=== PATIENT | female | born 1995 | race Caucasian/White ===

== ENCOUNTER 2019-09-18 13:53 | Outpatient (CLI) | payer OTHER ==
[2019-09-18] MEDS ORDERED: MEDR150V INJ (14:29)
[2019-09-18 15:27] LABS: BASOPHILS # (AUTO) 0.04 x10^3/uL (0-0.1); BASOPHILS % (AUTO) 1 % (0-1); EOSINOPHILS % (AUTO) 2 % (1-7); LYMPHOCYTES # (AUTO) 2.94 x10^3/uL (1-3.4); LYMPHOCYTES % (AUTO) 41 % (22-44); MD NO; MEAN CORPUSCULAR HEMOGLOBIN 29.4 pg (27.0-34.8); MEAN CORPUSCULAR HGB CONC 32.7 g/dL (32.4-35.8); MEAN CORPUSCULAR VOLUME 89.9 fL (80-100); MEAN PLATELET VOLUME 9.4 fL (7.4-10.4); MONOCYTES # (AUTO) 0.57 x10^3/uL (0.2-0.8); MONOCYTES % (AUTO) 8 % (2-9); NEUTROPHILS # (AUTO) 3.48 x10^3/uL (1.8-6.8); NEUTROPHILS % (AUTO) 49 % (42-75); PLATELET COUNT 272 x10^3/uL (130-400); RED BLOOD COUNT 4.67 x10^6/uL (3.82-5.3); RED CELL DISTRIBUTION WIDTH 13.6 % (9.6-15.2)
[2019-09-18 15:36] LABS: ALANINE AMINOTRANSFERASE 24 U/L (12-78); ALBUMIN 4.1 g/dL (3.4-5.0); ANION GAP 5 mmol/L (5-15); CALCIUM 8.9 mg/dL (8.5-10.1); CHLORIDE 110 mmol/L (98-107); CREATININE 0.85 mg/dL (0.55-1.02)
[2019-09-18 15:41] LABS: ALKALINE PHOSPHATASE 38 U/L (45-117); BILIRUBIN,TOTAL 2.9 mg/dL (0.2-1.0); PROTHROMBIN TIME 10.6 Seconds (9.6-11.5); TOTAL PROTEIN 7.5 g/dL (6.4-8.2)
== END 2019-09-18 23:59 | disposition home or self-care (01) ==
LOC: STAR 13:53
PROVIDERS: ATTEND Neurological Surgery
DX: Z01.818 Encounter for other preprocedural examination (principal); M41.84 Other forms of scoliosis, thoracic region
CPT/HCPCS: 36415; 71046; 80053; 84703; 85025; 85610; 85730; 93005; U0001-CS

== ENCOUNTER 2019-09-25 06:37 | Inpatient (IN) | payer OTHER ==
[~2019-09-25] VITALS: Ht 165.1 cm; Wt 62.5 kg
[~2019-09-25 06:37] MED LIST: BACITRACIN 50,000 UNIT ONE; BUPIVACAINE/PF-EPI 0.5% 1:200K ONE; MEDR150V INJ; THROMBIN 20,000 UNIT VIAL TP ONE
[2019-09-25] MEDS ORDERED: LACTATED RINGERS 1,000 ML IV SCH (07:32)
[2019-09-25 07:37] VITALS: BP 124/80
[2019-09-25] MEDS ORDERED: ACETAMINOPHEN 500 MG TABLET PO ONE (08:00)
[2019-09-25] MEDS ORDERED: CHLORHEXIDINE 15 ML UDC MM ONE (08:00)
[2019-09-25] MEDS ORDERED: LIDOCAINE-MPF 1%, 2ML INFIL ONE (08:00)
[2019-09-25] MEDS ORDERED: LEVETIRACETAM 1,000 MG in SODIUM CHLORIDE 0.9% 100 ML IV ONE (08:00)
[2019-09-25 08:19] LABS: HCG UR SG 1.032 (1.003-1.030)
[2019-09-25] MEDS ORDERED: GADOTERATE 7.5 MMOL/15 ML SYR ONE (08:30)
[2019-09-25] MEDS ORDERED: FENTANYL PF 250 MCG/5ML ONE (08:51)
[2019-09-25] MEDS ORDERED: PROPOFOL 50 ML ONE (08:52)
[2019-09-25] MEDS ORDERED: PROPOFOL 10 MG/ML, 20ML ONE (08:52)
[2019-09-25] MEDS ORDERED: GLYCOPYRROLATE 0.2MG/1ML, 5ML ONE (08:52)
[2019-09-25] MEDS ORDERED: ONDANSETRON 2MG/ML, 2ML ONE ×2 (08:52→14:07)
[2019-09-25] MEDS ORDERED: NEOSTIGMINE 1 MG/ML, 10ML ONE (08:52)
[2019-09-25] MEDS ORDERED: DEXAMETHASONE 4 MG/ML, 1ML ONE (08:52)
[2019-09-25] MEDS ORDERED: CEFAZOLIN 1,000 MG ONE (08:52)
[2019-09-25] MEDS ORDERED: ROCURONIUM 10MG/ML,5ML ONE (08:52)
[2019-09-25] MEDS ORDERED: FUROSEMIDE 20 MG/2 ML ONE (09:18)
[2019-09-25] MEDS ORDERED: DEXAMETHASONE 4 MG/ML, 5ML ONE (09:18)
[2019-09-25] MEDS ORDERED: MANNITOL PMX 20% 500 ML ONE (09:18)
[2019-09-25] MEDS ORDERED: FENTANYL PF 100 MCG/2ML IV PRN (09:30)
[2019-09-25] MEDS ORDERED: HYDROmorphone 1 MG/ML, 1ML INJ IVPush PRN (09:30)
[2019-09-25] MEDS ORDERED: hydrALAzine 20 MG/ML, 1ML IV PRN ×2 (09:30→14:30)
[2019-09-25] MEDS ORDERED: HALOPERIDOL 5 MG/ML IV PRN (09:30)
[2019-09-25] MEDS ORDERED: MEPERIDINE/PF 25MG/0.5ML IVPush PRN (09:30)
[2019-09-25] MEDS ORDERED: morphine SULFATE 10 MG/ML, 1ML IVPush PRN (09:30)
[2019-09-25] MEDS ORDERED: PROMETHAZINE 25 MG/ML, 1ML IVPush PRN (09:30)
[2019-09-25] MEDS ORDERED: LABETALOL 5MG/ML, 20ML IV PRN (09:30)
[2019-09-25] MEDS ORDERED: OXYcodone 5 MG/5 ML ORAL.SOL UDC PO PRN (09:30)
[2019-09-25] MEDS ORDERED: FENTANYL PF 100 MCG/2ML ONE ×2 (10:34)
[2019-09-25] MEDS ORDERED: BACITRACIN OINT 500U/GM, 15 GM ONE (12:13)
[2019-09-25] MEDS ORDERED: PROMETHAZINE 25 MG/ML, 1ML ONE (12:57)
[2019-09-25] MEDS ORDERED: LABETALOL 5MG/ML, 20ML IV SCH (14:30)
[2019-09-25] MEDS: ONDANSETRON 2MG/ML, 2ML IV PRN ×2 (14:30→21:04)
[2019-09-25] MEDS ORDERED: DIPHENHYDRAMINE 50 MG/ML, 1ML IM PRN (14:30)
[2019-09-25] MEDS ORDERED: MAGNESIUM HYDROXIDE 8%, 30ML UDC PO PRN (14:30)
[2019-09-25] MEDS: LABETALOL 5MG/ML, 20ML IV SCH ×2 (14:30→22:39)
[2019-09-25] MEDS ORDERED: ACETAMINOPHEN 650 MG SUPP PR PRN (14:30)
[2019-09-25] MEDS ORDERED: ACETAMINOPHEN 325 MG TABLET PO PRN (14:30)
[2019-09-25] MEDS ORDERED: BISACODYL 10 MG SUPP PR PRN (14:30)
[2019-09-25] MEDS ORDERED: LABETALOL 250 MG in DEXTROSE 5% 200 ML IV PRN (14:30)
[2019-09-25] MEDS ORDERED: OXYcodone/APAP 5/325MG TABLET PO PRN (14:30)
[2019-09-25] MEDS ORDERED: DIPHENHYDRAMINE 50 MG/ML, 1ML IV PRN (14:30)
[2019-09-25] MEDS ORDERED: CALCIUM CARBONATE 500 MG TAB.CHEW PO PRN (15:30)
[2019-09-25] MEDS ORDERED: METOCLOPRAMIDE 5 MG/ML, 2ML IVPush PRN (15:30)
[2019-09-25] MEDS: NS + 20MEQ KCL 1,000 ML IV SCH (15:57)
[2019-09-25] MEDS: HYDROmorphone 2 MG/ML, 1ML IV PRN ×3 (15:58→21:26)
[2019-09-25] MEDS: CEFAZOLIN PMX 1GM/50ML 50 ML IVPB SCH (18:17)
[2019-09-25] MEDS: MANNITOL 0.25 GM/ML, 50ML IVPush SCH (18:20)
[2019-09-25] MEDS: LEVETIRACETAM 500 MG in SODIUM CHLORIDE 0.9% 100 ML IV SCH (22:39)
[2019-09-26] MEDS: HYDROmorphone 2 MG/ML, 1ML IV PRN ×5 (00:33→14:51)
[2019-09-26] MEDS: MANNITOL 0.25 GM/ML, 50ML IVPush SCH ×2 (02:30→11:04)
[2019-09-26] MEDS: CEFAZOLIN PMX 1GM/50ML 50 ML IVPB SCH (02:31)
[2019-09-26 04:00] VITALS: BP 126/74
[2019-09-26] MEDS: ONDANSETRON 2MG/ML, 2ML IV PRN ×2 (04:24→11:19)
[2019-09-26] MEDS: NS + 20MEQ KCL 1,000 ML IV SCH ×2 (04:32→17:11)
[2019-09-26 04:54] LABS: BASOPHILS # (AUTO) 0.05 x10^3/uL (0-0.1); BASOPHILS % (AUTO) 0 % (0-1); EOSINOPHILS % (AUTO) 0 % (1-7); LYMPHOCYTES # (AUTO) 1.65 x10^3/uL (1-3.4); LYMPHOCYTES % (AUTO) 12 % (22-44); MD NO; MEAN CORPUSCULAR HEMOGLOBIN 30.1 pg (27.0-34.8); MEAN CORPUSCULAR HGB CONC 33.8 g/dL (32.4-35.8); MEAN CORPUSCULAR VOLUME 89.3 fL (80-100); MEAN PLATELET VOLUME 9.7 fL (7.4-10.4); MONOCYTES % (AUTO) 9 % (2-9); NEUTROPHILS # (AUTO) 10.77 x10^3/uL (1.8-6.8); NEUTROPHILS % (AUTO) 78 % (42-75); PLATELET COUNT 232 x10^3/uL (130-400); RED BLOOD COUNT 4.04 x10^6/uL (3.82-5.3); RED CELL DISTRIBUTION WIDTH 13.1 % (9.6-15.2)
[2019-09-26 05:05] LABS: ANION GAP 9 mmol/L (5-15); CALCIUM 8.3 mg/dL (8.5-10.1); CHLORIDE 109 mmol/L (98-107); CREATININE 0.75 mg/dL (0.55-1.02)
[2019-09-26] MEDS: LABETALOL 5MG/ML, 20ML IV SCH ×2 (07:19→14:46)
[2019-09-26] MEDS: SENNA/DOCUSATE TABLET PO SCH (09:07)
[2019-09-26] MEDS: LEVETIRACETAM 500 MG in SODIUM CHLORIDE 0.9% 100 ML IV SCH ×2 (10:08→22:09)
[2019-09-26] MEDS: HYDROcodone/APAP 5/325 TABLET PO PRN ×2 (13:36→19:41)
[2019-09-26] MEDS ORDERED: LABETALOL 100 MG TABLET PO PRN (17:00)
[2019-09-26] MEDS ORDERED: SCOPOLAMINE 1MG PATCH TD ONE (17:00)
[2019-09-26] MEDS: DEXAMETHASONE 4 MG/ML, 1ML IVPush SCH ×2 (17:10→22:51)
[2019-09-26 19:14] VITALS: BP 145/80
[2019-09-26] MEDS ORDERED: LABETALOL 5MG/ML, 20ML IV PRN (22:00)
[2019-09-27 00:43] VITALS: BP 126/74
[2019-09-27] MEDS: HYDROcodone/APAP 5/325 TABLET PO PRN ×2 (01:02→09:24)
[2019-09-27] MEDS: NS + 20MEQ KCL 1,000 ML IV SCH (04:51)
[2019-09-27] MEDS: DEXAMETHASONE 4 MG/ML, 1ML IVPush SCH ×2 (04:51→11:41)
[2019-09-27 05:24] LABS: BASOPHILS # (AUTO) 0.02 x10^3/uL (0-0.1); BASOPHILS % (AUTO) 0 % (0-1); EOSINOPHILS # (AUTO) 0.07 x10^3/uL (0-0.4); EOSINOPHILS % (AUTO) 1 % (1-7); LYMPHOCYTES # (AUTO) 1.08 x10^3/uL (1-3.4); LYMPHOCYTES % (AUTO) 13 % (22-44); MD NO; MEAN CORPUSCULAR HEMOGLOBIN 29.5 pg (27.0-34.8); MEAN CORPUSCULAR HGB CONC 32.8 g/dL (32.4-35.8); MEAN CORPUSCULAR VOLUME 89.9 fL (80-100); MEAN PLATELET VOLUME 10.1 fL (7.4-10.4); MONOCYTES # (AUTO) 0.17 x10^3/uL (0.2-0.8); MONOCYTES % (AUTO) 2 % (2-9); NEUTROPHILS # (AUTO) 7.25 x10^3/uL (1.8-6.8); NEUTROPHILS % (AUTO) 85 % (42-75); PLATELET COUNT 222 x10^3/uL (130-400); RED BLOOD COUNT 4.44 x10^6/uL (3.82-5.3); RED CELL DISTRIBUTION WIDTH 13.4 % (9.6-15.2)
[2019-09-27 05:36] LABS: ANION GAP 10 mmol/L (5-15); CALCIUM 8.7 mg/dL (8.5-10.1); CHLORIDE 111 mmol/L (98-107)
[2019-09-27 05:38] LABS: CREATININE 0.86 mg/dL (0.55-1.02)
[2019-09-27 07:13] VITALS: BP 119/70
[2019-09-27] MEDS ORDERED: LEVE500T53 PO (08:10)
[2019-09-27] MEDS ORDERED: DOCU-131 PO (08:10)
[2019-09-27] MEDS ORDERED: HYDR-3246 PO (08:10)
[2019-09-27] MEDS ORDERED: ONDA4TAB13 PO (09:02)
[2019-09-27] MEDS: SENNA/DOCUSATE TABLET PO SCH (09:23)
[2019-09-27] MEDS: LEVETIRACETAM 500 MG in SODIUM CHLORIDE 0.9% 100 ML IV SCH (11:41)
[2019-09-27 12:54] VITALS: BP 111/71
== END 2019-09-27 16:01 | disposition home or self-care (01) | DRG 27 ==
LOC: ORIP 06:37 → CCU 13:48 → 4NE 09-26 18:24 → DCLOUNGE 09-27 15:46
PROVIDERS: ADMIT Neurological Surgery; ATTEND Neurological Surgery
PROC: 00U20KZ Supplement Dura Mater with Nonautologous Tissue Substitute, Open Approach (ICD-10-PCS; 2019-09-25)
PROC: 00B70ZZ Excision of Cerebral Hemisphere, Open Approach (ICD-10-PCS; principal; 2019-09-25 09:30)
DX: D18.02 Hemangioma of intracranial structures (principal); Q27.8 Other specified congenital malformations of peripheral vascular system; Z80.8 Family history of malignant neoplasm of other organs or systems
CPT/HCPCS: 36415; 70450; 70552; 80048; 81025; 85025; 86850; 86900; 87081; 88305; C1713; G0378; J0690; J1100; J1170; J1953; J2405; J2550; J2704; J2710; J3010; J3480; A9575; J1940; J2150; J2765; J7120

== ENCOUNTER 2020-04-06 16:28 | Outpatient (CLI) | payer OTHER ==
[~2020-04-06 16:28] MED LIST changes: -BACITRACIN 50,000 UNIT ONE; -BUPIVACAINE/PF-EPI 0.5% 1:200K ONE; +DOCU-131 PO; +HYDR-3246 PO; +LEVE500T53 PO; +ONDA4TAB13 PO; -THROMBIN 20,000 UNIT VIAL TP ONE
[2020-04-06] MEDS ORDERED: GADOTERATE 7.5 MMOL/15 ML VIAL ONE (17:19)
== END 2020-04-06 23:59 | disposition home or self-care (01) ==
LOC: RAD 16:28
PROVIDERS: ATTEND Neurological Surgery
DX: R51.9 Headache, unspecified (principal)
CPT/HCPCS: 70553; A9575

== ENCOUNTER → 2020-09-22 | Outpatient (CLI) | payer OTHER ==
[~2020-09-22] MED LIST changes: +GADOTERATE 7.5 MMOL/15ML SYR ONE; -HYDR-3246 PO; +HYDR-3248 PO
== END | disposition home or self-care (01) ==
LOC: RAD 10:14
PROVIDERS: ATTEND Neurological Surgery
DX: D43.2 Neoplasm of uncertain behavior of brain, unspecified (principal)
CPT/HCPCS: 70553; A9575

== ENCOUNTER → 2020-12-01 | Outpatient (CLI) | payer OTHER ==
[~2020-12-01] MED LIST changes: -GADOTERATE 7.5 MMOL/15ML SYR ONE
[2020-12-01 12:40] LABS: MEAN CORPUSCULAR HGB CONC 34.4 g/dL (32.4-35.8); MEAN PLATELET VOLUME 8.8 fL (7.4-10.4); PLATELET COUNT 247 x10^3/uL (130-400); RED CELL DISTRIBUTION WIDTH 13.6 % (9.6-15.2)
[2020-12-01 12:51] LABS: ALANINE AMINOTRANSFERASE 19 U/L (12-78); ALBUMIN 3.7 g/dL (3.4-5.0); ANION GAP 7 mmol/L (5-15); CALCIUM 8.8 mg/dL (8.5-10.1); CHLORIDE 109 mmol/L (98-107); CREATININE 0.79 mg/dL (0.55-1.02)
[2020-12-01 12:53] LABS: ALKALINE PHOSPHATASE 51 U/L (45-117); BILIRUBIN,TOTAL 1.9 mg/dL (0.2-1.0); TOTAL PROTEIN 7.6 g/dL (6.4-8.2)
[2020-12-01 13:44] LABS: CRYPTOSPORIDIUM ANTIGEN Negative (Negative)
[2020-12-01 13:46] LABS: CLOSTRIDIUM DIFFICILE ANTIGEN NEGATIVE; CLOSTRIDIUM DIFFICILE TOXIN NEGATIVE (Negative)
== END | disposition home or self-care (01) ==
LOC: LAB 12:23
PROVIDERS: ATTEND Physician Assistant
DX: R19.7 Diarrhea, unspecified (principal); Z20.828 Contact with and (suspected) exposure to other viral communicable diseases
CPT/HCPCS: 36415; 80053; 85027; 87046; 87324; 87328; 87329; 87427